=== PATIENT | female | born 1970 | race Caucasian/White ===

== ENCOUNTER 2024-05-13 09:06 | Day surgery (SDC) | payer OTHER ==
[2012-10-09 01:21] VITALS: BP 130/78
[2024-05-13] MEDS ORDERED: LIDOCAINE HCL 2% 100 MG/5 ML IJ ONE (09:07)
[2024-05-13 10:24] LABS: HCG URINE TEST NEGATIVE (NEGATIVE)
[2024-05-13] MEDS ORDERED: propofoL IV ONE (11:59)
--- NOTE | 2024-05-13 13:31 | XRAY ---
Indication: Bilateral L3-L5 MBB. Intraoperative fluoroscopy provided for 11 seconds. Single digital spot image submitted for interpretation demonstrates posterior needle tips projecting over expected left and right L3-L5 nerve roots. Correlate with intraoperative findings/report.
--- NOTE | 2024-05-13 14:44 | XRAY ---
11 seconds of fluoroscopy was used in surgery for a bilateral L3-L5 MBB.
== END 2024-05-13 12:30 | disposition home or self-care (01) ==
LOC: SDC-PAIN 09:06
PROVIDERS: ATTEND Psychiatry & Neurology Pain Medicine
DX: M47.816 Spondylosis without myelopathy or radiculopathy, lumbar region (principal); E11.9 Type 2 diabetes mellitus without complications
CPT/HCPCS: 64493; 64494; 72020; 77002; 81025; 82947; J2704

== ENCOUNTER 2024-06-03 06:50 | Day surgery (SDC) | payer OTHER ==
[2012-10-09 01:21] VITALS: BP 130/78
[2024-06-03] MEDS ORDERED: BUPIVACAINE 0.5% VIAL IJ ONE (06:51)
[2024-06-03 07:18] LABS: HCG URINE TEST NEGATIVE (NEGATIVE)
[2024-06-03] MEDS ORDERED: propofoL IV ONE (09:10)
--- NOTE | 2024-06-03 11:41 | XRAY ---
Indication: Bilateral L3-L5 MBB. Intraoperative fluoroscopy provided for 13 seconds. Single digital spot image submitted for interpretation demonstrate posterior needle tips projecting over expected left and right L3-L5 nerve roots. Correlate with intraoperative findings/report.
--- NOTE | 2024-06-03 12:58 | XRAY ---
13 seconds of fluoroscopy was used in surgery for a bilateral L3-L5 MBB.
== END 2024-06-03 09:35 | disposition home or self-care (01) ==
LOC: SDC-PAIN 06:50
PROVIDERS: ATTEND Psychiatry & Neurology Pain Medicine
DX: M47.816 Spondylosis without myelopathy or radiculopathy, lumbar region (principal); E11.9 Type 2 diabetes mellitus without complications
CPT/HCPCS: 64493; 64494; 72020; 81025; 82947; J2704

== ENCOUNTER 2024-06-17 07:44 | Day surgery (SDC) | payer OTHER ==
[2012-10-09 01:21] VITALS: BP 130/78
[2024-06-17] MEDS ORDERED: BUPIVACAINE 0.5% VIAL IJ ONE (07:45)
[2024-06-17] MEDS ORDERED: LIDOCAINE HCL 1% AMPUL 5 ML IJ ONE (07:45)
[2024-06-17] MEDS ORDERED: Lactated Ringers 500 ML IV ONE (08:07)
[2024-06-17 08:14] LABS: HCG URINE TEST NEGATIVE (NEGATIVE)
[2024-06-17] MEDS ORDERED: propofoL IV ONE ×2 (09:21→09:30)
--- NOTE | 2024-06-17 11:40 | XRAY ---
Indication: Left L3-L5 RFA. Intraoperative fluoroscopy provided for 28 seconds. 3 digital spot image submitted for interpretation demonstrates posterior needle tips projecting over expected left L3-L5 nerve roots. Correlate with intraoperative findings/report.
--- NOTE | 2024-06-17 12:57 | XRAY ---
28 seconds of fluoroscopy was used in surgery for a left L3-L5 RFA.
== END 2024-06-17 10:00 | disposition home or self-care (01) ==
LOC: SDC-PAIN 07:44
PROVIDERS: ATTEND Psychiatry & Neurology Pain Medicine
DX: M47.817 Spondylosis without myelopathy or radiculopathy, lumbosacral region (principal); E11.9 Type 2 diabetes mellitus without complications
CPT/HCPCS: 64635; 64636; 72100; 81025; 82947; J2704

== ENCOUNTER 2024-06-24 07:32 | Day surgery (SDC) | payer OTHER ==
[2012-10-09 01:21] VITALS: BP 130/78
[2024-06-24] MEDS ORDERED: LIDOCAINE HCL 1% AMPUL 5 ML IJ ONE (07:33)
[2024-06-24] MEDS ORDERED: BUPIVACAINE 0.5% VIAL IJ ONE (07:33)
[2024-06-24 07:43] LABS: HCG URINE TEST NEGATIVE (NEGATIVE)
[2024-06-24] MEDS ORDERED: propofoL IV ONE (09:00)
[2024-06-24] MEDS ORDERED: MORPHINE SULFATE 2 MG INJ ONE (09:21)
[2024-06-24] MEDS ORDERED: Lactated Ringers 1,000 ML IV ONE ×2 (09:21→09:26)
--- NOTE | 2024-06-24 10:24 | XRAY ---
Indication: Right L3-L5 RFA. Intraoperative fluoroscopy provided for 37 seconds. 4 digital spot images submitted for interpretation demonstrates posterior needle tips projecting over expected right L3-L5 nerve roots. Correlate with operative findings/report.
--- NOTE | 2024-06-24 11:06 | XRAY ---
37 seconds of fluoroscopy used in surgery for a right L3-L5 RFA.
== END 2024-06-24 09:50 | disposition home or self-care (01) ==
LOC: SDC-PAIN 07:32
PROVIDERS: ATTEND Psychiatry & Neurology Pain Medicine
DX: M47.817 Spondylosis without myelopathy or radiculopathy, lumbosacral region (principal); E11.9 Type 2 diabetes mellitus without complications
CPT/HCPCS: 64635; 64636; 72100; 81025; 82947; J2270; J2704